=== PATIENT | female | born 1975 | race Caucasian/White ===

== ENCOUNTER 2019-01-20 09:23 | Outpatient (CLI) | payer MEDICAID ==
[~2019-01-20] VITALS: Ht 167.6 cm; Wt 65.1 kg
[2019-01-20] VITALS (11 sets, daily range): BP systolic 105–129; BP diastolic 73–98; PULSE 66–83
[2019-01-20] MEDS ORDERED: GRALISE300 MG PO (09:37)
[2019-01-20] MEDS ORDERED: CELEBREX 200MG200 MG PO (09:38)
[2019-01-20] MEDS ORDERED: FLEXERIL 1010 MG/TAB PO (09:39)
[2019-01-20 11:15] LABS: GLUCOSE,CSF 62 mg/dL (40-70); TOTAL PROTEIN,CSF 35 mg/dL (15-45)
[2019-01-20 11:41] LABS: CSF APPEARANCE CLEAR; CSF COLOR COLORLESS; CSF POLYMORPHONUCLEAR 0 % (0-6); CSF RBC 2 /mm3 (0-0)
[2019-01-20 11:42] LABS: CSF MONONUCLEAR 100 % (70-100)
--- NOTE | 2019-01-20 13:05 | NUR ---
Several attempts made to call pt ride to pick her up,no answer.per pt her friend has her car and is sopose to return to pick her up.Discharge instructions given.Will continue to monitor.
--- NOTE | 2019-01-20 13:50 | NUR ---
Pt ride arrived.Pt escorted by this nurse.
[2019-01-23 12:18] LABS: ALBUMIN CSF 19.4 mg/dL (<=27.0)
[2019-01-23 12:22] LABS: CSF IGG/ALBUMIN 0.09 (<=0.21); CSF,IGG 1.8 mg/dL (<=8.1)
[2019-01-23 13:05] LABS: CSF-IGG INDEX 0.38 (<=0.85); IGG/ALBUMIN SERUM 0.24 (<=0.40)
== END 2019-01-20 14:48 | disposition home or self-care (01) ==
LOC: COL.RAD 09:23
PROVIDERS: Psychiatry & Neurology Neurology
DX: G37.9 Demyelinating disease of central nervous system, unspecified (principal)

== ENCOUNTER → 2019-03-31 | Outpatient (CLI) | payer MEDICAID ==
[~2019-03-31] MED LIST: CELEBREX 200MG200 MG PO; FLEXERIL 1010 MG/TAB PO; GRALISE300 MG PO
== END ==
LOC: MHCPAIN 09:15
DX: M54.12 Radiculopathy, cervical region (principal); M47.812 Spondylosis without myelopathy or radiculopathy, cervical region
CPT/HCPCS: G0463

== ENCOUNTER → 2020-05-31 | Outpatient (CLI) | payer MEDICAID | LOC: COL.CARD | DX: G40.909 Epilepsy, unspecified, not intractable, without status epilepticus (principal); F19.11 Other psychoactive substance abuse, in remission ==

== ENCOUNTER → 2020-08-22 | Outpatient (CLI) | payer MEDICAID | LOC: MHCPAIN 10:59 | DX: M47.812 Spondylosis without myelopathy or radiculopathy, cervical region (principal); M54.2 Cervicalgia; G89.29 Other chronic pain; F17.210 Nicotine dependence, cigarettes, uncomplicated | CPT/HCPCS: G0463 ==